=== PATIENT | male | born 1945 | race Caucasian/White ===

== ENCOUNTER 2017-03-23 11:01 | Emergency (ER) | payer OTHER ==
[~2017-03-23] VITALS: Ht 160 cm; Wt 67.6 kg
[~2017-03-23 11:01] MED LIST: ALPR0.252 PO; CARV6.25 PO; DOXA4TAB PO; ISOS20TA13 PO; LOSA25TA14 PO; MECL-305 PO; MECL-56 PO; SIMV20TA1 PO
[2017-03-23 11:45] VITALS: BP 160/81
--- NOTE | 2017-03-23 13:35 | NUR ---
PT PRESENTS TO ER FOR EVALUATION OF RIGHT EYE SWELLING. PT STATES HE WOKE UP THIS AM AND HIS RIGHT EYE WAS SWOLLEN AND IT WAS DIFFICULT TO OPEN. HX HTN. DENIES N/V/D; SKIN IS PINK/WARM/DRY; AAOX4 WITH EVEN AND STEADY GAIT; LUNGS CLEAR BL; HR EVEN AND REGULAR; PT DENIES ANY FEVER, CP, SOB, OR COUGH AT THIS TIME; PATIENT STATES PAIN OF 0/10 AT THIS TIME; VSS; PATIENT POSITIONED FOR COMFORT; HOB ELEVATED; BEDRAILS UP X2; BED DOWN. ER MD MADE AWARE OF PT STATUS.
[2017-03-23 15:18] LABS: BASOPHILS # (AUTO) 0.1 K/uL (0.00-0.22); BASOPHILS % (AUTO) 1.3 % (0.0-2.0); EOSINOPHILS # (AUTO) 0.2 K/uL (0-0.4); EOSINOPHILS % (AUTO) 3.6 % (0.0-4.0); HEMATOCRIT 42.9 % (36-52); HEMOGLOBIN 13.7 g/dL (12.0-18.0); MEAN CORPUSCULAR HEMOGLOBIN 27 pg (27-31); MEAN CORPUSCULAR HGB CONC 32 g/dL (33-37); MEAN CORPUSCULAR VOLUME 85 fL (80-94); MONOCYTES # (AUTO) 0.5 K/uL (0.8-1.0); MONOCYTES % (AUTO) 7.5 % (1.7-9.3); NEUTROPHILS # (AUTO) 5.1 K/uL (1.8-7.7); NEUTROPHILS % (AUTO) 73.6 % (42.2-75.2); PLATELET COUNT (AUTO) 171 K/uL (140-450); RED BLOOD CELL COUNT(AUTO) 5.03 MIL/uL (4.20-6.10); RED CELL DISTRIBUTION WIDTH 17.5 % (11.6-13.7); WHITE BLOOD COUNT (AUTO) 6.9 K/uL (4.8-10.8)
[2017-03-23 15:31] LABS: ANION GAP 11.7 (8-16); CALCIUM 9.2 mg/dL (8.5-10.1); CARBON DIOXIDE 29.2 mmol/L (21-32); CHLORIDE 108 mmol/L (98-107); GLUCOSE 99 mg/dL (74-106); POTASSIUM 4.9 mmol/L (3.5-5.1); SODIUM SERUM 144 mmol/L (136-145); UREA NITROGEN, BLOOD 28 mg/dL (7-18)
--- NOTE | 2017-03-23 16:20 | NUR ---
PT RESTING COMFORTABLY ON BED AT THIS TIME, NO C/O PAIN OR ANY ACUTE DISTRESS AT THIS TIME, ON MONITOR, WILL CONTINUE TO MONITOR
--- NOTE | 2017-03-23 19:22 | NUR ---
REPORT GIVEN TO REBECCA DIANE FOR CONTINUATION OF CARE
[2017-03-23] MEDS ORDERED: ASPIRIN 325 MG TAB PO ONE (19:25)
--- NOTE | 2017-03-23 19:30 | NUR ---
REPORT GIVEN TO REBECCA ONTIVEROS, PT WILL BE UNDER THE CARE OF DR ASHLEY
[2017-03-23] MEDS ORDERED: ENALAPRILAT 2.5 MG/2 ML VIAL IVP ONE (20:20)
[2017-03-23 20:35] VITALS: BP 197/105
--- NOTE | 2017-03-23 20:35 | NUR ---
PT TRASFERRED TO [facility] VIA [facility]. NO S/S OF DISTRESS GIVEN. ENALAPRIL GIVEN D/T INCREASED BP, NO S/S OF DISTRESS NOTED ON DC. [facility] CONTACTED TO NOTIFIED OF TIME OF TRASFER.
== END 2017-03-23 20:35 | disposition short-term general hospital (02) ==
LOC: MED 11:01
DX: H53.2 Diplopia (principal); E78.00 Pure hypercholesterolemia, unspecified; I25.2 Old myocardial infarction; Z86.73 Personal history of transient ischemic attack (TIA), and cerebral infarction without residual deficits; Z95.1 Presence of aortocoronary bypass graft
CPT/HCPCS: 36415; 70450; 80048; 85025; 93005; 96374; 99285; J3490

== ENCOUNTER 2018-05-12 23:35 | Inpatient (IN) | payer OTHER ==
[~2018-05-12] VITALS: Ht 157.5 cm; Wt 61.2 kg
[~2018-05-12 23:35] MED LIST changes: +ASPI81CT20 PO; +ATEN50TA8 PO; +LON2.5 PO; +MSCON15 PO; +SERT25TA PO
[2018-05-12 23:42] VITALS: BP 151/69
--- NOTE | 2018-05-12 23:48 | NUR ---
TO BED # 6 AMBULATORY WITH HIS WALKER.
--- NOTE | 2018-05-13 | NUR ---
PATIENT IS A 73 Y/O MALE WHO PRESENTS TO THE ED FOR SYNCOPE S/P FALL. PT STATES THAT HE WAS WALKING AT HOME AND FELL. PT STATES 10/10 ACHING FOOT, SHOULDER, KNEES PAIN THAT DOES NOT RADIATE. PT DENIES CP, SOB, REPORTS NAUSEA DENIES VOMITING/DIARRHEA. PT AAOX4, RR EVEN/UNLABORED, AMBULATED WITH WALKER. PT REPOSITIONED FOR COMFORT, BED IN LOWEST POSITION. ER MD DR. CORTEZ NOTIFIED. WILL CONTINUE TO MONITOR. Addendum: 05/13/18 at 0052 by MEDDCV PATIENT IS A 73 Y/O MALE WHO PRESENTS TO THE ED FOR SYNCOPE S/P FALL. PT STATES THAT HE WAS WALKING AT HOME AND FELL. PT STATES 10/10 ACHING R FOOT, SHOULDER AND KNEE PAIN THAT DOES NOT RADIATE. PT DENIES CP, SOB, REPORTS NAUSEA DENIES VOMITING/DIARRHEA. PT AAOX4, RR EVEN/UNLABORED, AMBULATED WITH WALKER. PT REPOSITIONED FOR COMFORT, BED IN LOWEST POSITION. ER MD DR. CORTEZ NOTIFIED. WILL CONTINUE TO MONITOR.
--- NOTE | 2018-05-13 00:04 | NUR ---
Dr. Rodgers evaluating patient at bedside.
--- NOTE | 2018-05-13 00:19 | NUR ---
X-Ray at bedside.
[2018-05-13] MEDS ORDERED: KEP500 PO (00:22)
[2018-05-13] MEDS ORDERED: OMEP20TC12 PO (00:22)
[2018-05-13 00:31] LABS: BASOPHILS # (AUTO) 0.1 K/uL (0.00-0.22); BASOPHILS % (AUTO) 0.5 % (0.0-2.0); EOSINOPHILS # (AUTO) 0.1 K/uL (0-0.4); HEMATOCRIT 40.1 % (36-52); HEMOGLOBIN 12.6 g/dL (12.0-18.0); LYMPHOCYTES # (AUTO) 0.8 K/uL (2.0-11.5); LYMPHOCYTES % (AUTO) 6.6 % (20.5-51.1); MEAN CORPUSCULAR HEMOGLOBIN 28 pg (27-31); MEAN CORPUSCULAR HGB CONC 32 g/dL (33-37); MEAN CORPUSCULAR VOLUME 88.1 fL (80-94); MONOCYTES # (AUTO) 0.7 K/uL (0.8-1.0); MONOCYTES % (AUTO) 5.6 % (1.7-9.3); NEUTROPHILS # (AUTO) 10.5 K/uL (1.8-7.7); PLATELET COUNT (AUTO) 198 K/uL (140-450); RED BLOOD CELL COUNT(AUTO) 4.55 MIL/uL (4.20-6.10); RED CELL DISTRIBUTION WIDTH 15.3 % (11.6-13.7); WHITE BLOOD COUNT (AUTO) 12.1 K/uL (4.8-10.8)
[2018-05-13 00:43] LABS: ANION GAP 13.2 (8-16); CARBON DIOXIDE 27.1 mmol/L (21-32); CHLORIDE 106 mmol/L (98-107); CREATININE 3.3 mg/dL (0.7-1.3); GLUCOSE 150 mg/dL (74-106); POTASSIUM 5.3 mmol/L (3.5-5.1); SODIUM SERUM 141 mmol/L (136-145); UREA NITROGEN, BLOOD 52 mg/dL (7-18)
[2018-05-13 00:44] LABS: NEUTROPHILS % (AUTO) 86.3 % (42.2-75.2)
--- NOTE | 2018-05-13 00:48 | NUR ---
PT RETURN FROM CT
[2018-05-13 00:49] LABS: ALBUMIN 3.5 g/dL (3.4-5.0); ASPARTATE AMINOTRANSFERASE 15 U/L (15-37); TOTAL BILIRUBIN 0.6 mg/dL (0.0-1.0)
--- NOTE | 2018-05-13 00:55 | NUR ---
PATIENT WANTING TO SIT IN CHAIR. PATIENT EDUCATED FOR SAFETY THAT PT SHOULD BE IN BED.
[2018-05-13 00:56] LABS: CHOL/HDL RATIO 2.6 (1-4.5)
--- NOTE | 2018-05-13 01:15 | NUR ---
PATIENT RESTING AT THIS TIME. NO SIGNS OF DISTRESS.
[2018-05-13] MEDS ORDERED: ONDANSETRON 4 MG/2 ML VIAL IVP ONE (01:25)
[2018-05-13 02:24] LABS: APPEARANCE,URINE CLEAR (CLEAR); BILIRUBIN,URINE NEGATIVE (NEGATIVE); BLOOD, URINE TRACE-I (NEGATIVE); COLOR,URINE YELLOW (YELLOW); LEUKOCYTE ESTERASE ,URINE NEGATIVE (NEGATIVE); NITRITE, URINE NEGATIVE (NEGATIVE); UGLUCOSE NEGATIVE (NEGATIVE)
[2018-05-13 02:40] LABS: RBC,URINE 0-5 (RARE) /HPF (0-5); WBC,URINE 0-5 (RARE) /HPF (0-5)
[2018-05-13 02:41] LABS: HYALINE CASTS, URINE 0-3 /LPF (None Seen)
[2018-05-13] MEDS ORDERED: ACETAMINOPHEN 325 MG TAB PO PRN (02:55)
[2018-05-13] MEDS ORDERED: DOCUSATE SODIUM 100 MG GELCAP PO PRN (02:55)
[2018-05-13] MEDS ORDERED: MORPHINE SULFATE 2 MG/ML SYR IVP PRN (02:55)
[2018-05-13] MEDS ORDERED: HYDROcodone/APAP 5/325 MG 1 TAB TAB PO PRN (02:55)
[2018-05-13] MEDS ORDERED: LORazepam 2 MG/ML VIAL IM/IVP PRN (02:55)
[2018-05-13] MEDS ORDERED: ONDANSETRON 4 MG/2 ML VIAL IM/IVP PRN (02:55)
--- NOTE | 2018-05-13 03:04 | NUR ---
BED DELAY, ON-CALL RN WILL BE CALLED IN. CHARGE NURSE, WESTON WILL CALL WHEN RN AVAILABLE TO TAKE PT.
[2018-05-13 03:36] LABS: BARBITURATE, URINE NEG. ng/ml (NEG <=200); BENZODIAZEPINE, URINE NEG. ng/mL (NEG <=200); CANNABINOID, URINE NEG. ng/mL (NEG <=50); COCAINE, URINE NEG. ng/mL (NEG <=300); OPIATE, URINE POS. ng/mL (NEG <=2000); PHENCYCLIDINE SCREEN,URINE NEG. ng/mL (NEG <=25)
[2018-05-13 03:43] LABS: CHOL/HDL RATIO 2.6 (1-4.5); PHOSPHORUS 4.5 mg/dL (2.5-4.9); THYROID STIMULATING HORMONE 3.79 uIU/mL (0.34-3.74)
--- NOTE | 2018-05-13 03:45 | NUR ---
Dr. Purdy evaluating patient at bedside.
--- NOTE | 2018-05-13 04:00 | NUR ---
ADMITTED 73YEARS OLD MALE FROM ER, CC: S/P FALL. DX: CHF, AFIB. SEE NURSING ADMISSION ASSESSMENT AND HISTORY. ORIENTED TO ROOM AND UNIT ROUTINES. CALL LIGHT WITHIN REACH. PLAN OF CARE DISCUSSED WITH PATIENT, VERBALIZED UNDERSTANDING WELL.
--- NOTE | 2018-05-13 04:00 | NUR ---
Patient will be admitted to care of DR. WALLER. Admited to TELE. Will go to room 123B. Belongings list completed. Report to JOHN FERNANDEZ.
[2018-05-13] MEDS ORDERED: MECLIZINE 25 MG TAB PO PRN (04:25)
[2018-05-13] MEDS ORDERED: ALPRAZolam 0.25 MG TAB PO PRN (04:35)
[2018-05-13] MEDS ORDERED: MORPHINE TAB ER 15 MG TABER PO PRN (04:35)
[2018-05-13 04:47] VITALS: BP 146/86
[2018-05-13] MEDS ORDERED: SODIUM POLYSTYRENE 15 GM/60 ML UDBTL PO SCH (05:00)
[2018-05-13] MEDS: NACL 0.9% 1,000 ML IV SCH ×2 (05:40→21:42)
--- NOTE | 2018-05-13 07:20 | NUR ---
ENDORSED CARE AT BEDSIDE WITH SITTAL RN, PATIENT IN STABLE CONDITION. PATIENT SON WILL COME AROUND 0730 TO HOUSE WIRER HELPER HOME MEDS AT BEDSIDE, ENDORSED TO SITTAL RN TO FOLLOW-UP MEDS HOU[facility] HELPER IF NOT, BRING TO INPATIENT PHARMACY.
--- NOTE | 2018-05-13 07:21 | NUR ---
RECEIVED PT FROM PM NURSE AT THE BEDSIDE. PT AWAKE, LYING DOWN ON BED. INTRODUCED SELF AND UPDATED THE BOARD. ALL SAFETY MEASURE IN PLACE. PT HOME MEDS IN THE CLOSET. PER PM NURSE SON TO VISIT PT BY [phone]. WILL GIVE MEDS TO PHARMACY IF THERE IS NO VISIT.WILL CONTINUE TO MONITOR PT.
[2018-05-13 08:00] VITALS: BP 174/74
--- NOTE | 2018-05-13 08:15 | NUR ---
PATIENT HAS BEEN SCREENED AND CATEGORIZED MODERATE NUTRITION RISK. PATIENT WILL BE SEEN WITHIN 3-5 DAYS OF ADMISSION. 05/15/18 05/17/[address]
[2018-05-13] MEDS: PANTOPRAZOLE 40 MG TABEC PO SCH (08:44)
[2018-05-13] MEDS: SERTRALINE 50 MG TAB PO SCH (08:45)
[2018-05-13] MEDS: ASPIRIN 81 MG TAB.CHEW PO SCH (08:45)
[2018-05-13] MEDS: levETIRAcetam 500 MG TAB PO SCH ×2 (08:45→21:40)
[2018-05-13] MEDS: MORPHINE TAB ER 15 MG TABER PO SCH ×2 (08:46→21:41)
[2018-05-13] MEDS ORDERED: LISINOPRIL 10 MG TAB PO SCH (09:00)
[2018-05-13] MEDS ORDERED: CARVEDILOL 6.25 MG TAB PO SCH (09:00)
[2018-05-13] MEDS ORDERED: ATENOLOL 50 MG TAB PO SCH (09:00)
[2018-05-13] MEDS ORDERED: hydrALAZINE 20 MG/ML VIAL IVP SCH (09:00)
--- NOTE | 2018-05-13 09:30 | NUR ---
ADMINISTERED HYDRALAZINE, 0.5 ML , 10 MG ORDERED BY DOCTOR. ATENOLOL ON HOLD BECAUSE OF HIS LOW HR. PT NOTIFIED. PT STATES THAT HIS BP HAS BEEN HIGH ALL THE TIME. PT TOLERATED MEDS WELL. DR SERRANO AT HIS BEDSIDE. EXPLAINED ABOUT HIS LOWERED HR AND CHANGED HIS CODE STATUS TO DNR. ALL SAFETY MEASURE IN PLACE. BED ON LOWERT POSITION. CALL LIGHT WITHIN REACH. WILL CONTINUE TO MONITOR PT.
--- NOTE | 2018-05-13 11:40 | NUR ---
PT CODE STATUS CHANGED TO DNR BY DR SERRANO..
[2018-05-13 12:00] VITALS: BP 152/54
--- NOTE | 2018-05-13 14:06 | NUR ---
PTS FAMILY AT THE BEDSIDE. SON BRISSA WITH PT. INFORMS THAT HIS SON WILL TAKE MEDS TO HOME , PT MEDS IN PHARMACY. INFORMED TO LET KNOW WHEN THEY WILL BE LEAVING, WILL BE PROVIDED THE MEDS THAT WAS FROM HOME. VERBALIZED UNDERSTANDING.
[2018-05-13 16:00] VITALS: BP 169/55
--- NOTE | 2018-05-13 16:00 | NUR ---
PT STATES THAT YELLOW GOWN GIVES HIM ANXIETY. WANTED TO BE OFF. PT ON HIS REGULAR UNDERSHIRT. CHARGE NURSE NOTIFIED. BED ALARM ON. BED AT LOWER POSITION. IV INFUSING WELL. WILL CONTINUE TO MONITOR PT.
--- NOTE | 2018-05-13 18:30 | NUR ---
DR CANCINO AT BEDSIDE. EXPLAINED PT THAT HE NEEDS PACEMAKER. PT CONCERNED ABOUT THE FINANCE , WAS INFORMED THAT INSURANCE WILL COVER THAT. PER DR CANCINO, PT TO PERFORM PACEMAKER INSERTION TOMORROW. PT AGREES AND VERBALIZED UNDERSTANDING. WILL CONTINUE TO MONITOR PT/
--- NOTE | 2018-05-13 19:20 | NUR ---
ENDORSED TO PM NURSE AT BEDSIDE. PT STABLE AT BEDSIDE.
--- NOTE | 2018-05-13 19:21 | NUR ---
RECEIVED REPORT FROM DAY SHIFT NURSE. AAOX4. NO RESP DISTRESS NOTED. NO C/O PAIN. PT ON ROOM AIR. IV TO LEFT AC #20, NS AT 30 ML/HR INFUSING WELL. SKIN INTACT. AT BEDSIDE. PT WILL BE TRANSFERRED TO ICU TONIGHT FOR EXTERNAL PACEMAKER TONIGHT AND INSERTION OF INTERNAL PACEMAKER TOMORROW MORNING. SAFETY PRECAUTION IN PLACE. CALL LIGHT WITHIN REACH.
[2018-05-13 20:00] VITALS: BP 153/66
--- NOTE | 2018-05-13 20:50 | NUR ---
PT TRANSFERRED TO ICU. REPORT GIVEN TO ICU NURSE. PT IN STABLE CONDITION.
--- NOTE | 2018-05-13 20:50 | NUR ---
TALKED TO DR. CANCINO Y REGARDING ORDER " EXTERNAL PACEMAKER STAND BY AT OP 10 MA RATE OF [address]" [address] CANCINO, IF PT DOES NOT HAVE SYMPTOMS, JUST STANDBY.
--- NOTE | 2018-05-13 21:00 | NUR ---
PT TRANSFER FROM TELEMETRY UNITS. PT IS ALERT ORIENTED, ABLE TO MAKE NEEDS KNOWN. ARABIC AND UNDERSTAND SIMPLE KHMER. PT ABLE TO WALK TO TRANSFER TO THE BED WITH ASSISTANCE. NO C/O PAIN AT THIS TIME, NO S/S OF SOB. PT ON ROOM AIR AT THIS TIME. PLACE PT ON COMFORTABLE POSITIONS. PER REPORT PT WILL HAVE PACEMAKER INSERTION IN AM WITH DR.PALIWAL MIRANDA. AT HIS TIME ORDER TO STAND BY EXTERNAL PACING [address] DEFIBRILLATOR PADS TO PTS AND STAND BY MACHINE AT BED SIDE. NO C/O FOR ANY CHEST PAIN AT THIS TIME. HR 38-44 X/MIN MD AWARE.SKIN IS INTACT, PT CONTINENT BOWEL AND BLADDER. ABD SOFT NON DISTENDED. GENTLE CARE GIVEN. CALL LIGHT IN REACH. CONT TO MONITOR PT CLOSELY.
[2018-05-13 21:11] VITALS: BP 172/96
[2018-05-13] MEDS: SIMVASTATIN 20 MG TAB PO SCH (21:41)
[2018-05-13] MEDS: hydrALAZINE 25 MG TAB PO SCH (21:41)
[2018-05-13] MEDS: ZOLPIDEM 5 MG TAB PO PRN (22:45)
--- NOTE | 2018-05-13 23:10 | NUR ---
DR.PALIWAL MIRANDA MADE AWARE PT BP INCREASE TO 193/95, PER MD TO GIVE AMLODIPINE 5 MG NOW AND DAILY START TOMORROW. ORDER NOTED AND CARRIED OUT PT MADE AWARE THE ORDER.
[2018-05-13] MEDS ORDERED: amLODIPine 5 MG TAB PO SCH (23:30)
[2018-05-14] VITALS (8 sets, daily range): BP systolic 125–193; BP diastolic 55–95
--- NOTE | 2018-05-14 00:05 | NUR ---
BLOOD PRESSURE DOWN TO 150/53,HR 35. NO C/O ANY WEAKNESS OR CHEST PAIN. PT LOOK CALM AND RELAX.HE SAID TRYING TO GET SOME SLEEP. NPO AT THIS TIME
--- NOTE | 2018-05-14 00:20 | NUR ---
PT URINATE X1 ABOUT 250 CC.PT ABLE TO STAND UP AND USING URINAL.
--- NOTE | 2018-05-14 02:25 | NUR ---
PT SLEEP WELL. HR 32 TO 40. PT SLEEP GOOD AT THIS TIME. EASY TO AWAKE.
--- NOTE | 2018-05-14 03:04 | NUR ---
PT URINATE X1 ABOUT 250 CC.PT ABLE TO STAND UP AND USING URINAL.
--- NOTE | 2018-05-14 05:00 | NUR ---
AM CARE GIVEN PT TOLERATING WELL, URINATE X1 ABOUT 300 CC ,YELLOW CLEAR URINE.
--- NOTE | 2018-05-14 06:05 | NUR ---
PT SLEEPING WELL AT THIS TIME
--- NOTE | 2018-05-14 06:08 | NUR ---
COME TOO SEE PT.
--- NOTE | 2018-05-14 06:49 | NUR ---
PLACED CALL TO ARABELLA FLANAGAN TO GET CONSENT FOR PACEMAKER PLACEMENT NO ANSWER LEFT MESSAGE TO CALL BACK.PT IS SLEEPING AT THIS TIME. WILL ENDORSE TO AM SHIFT TO FOLLOW UP.
[2018-05-14 07:09] LABS: BASOPHILS % (AUTO) 0.3 % (0.0-2.0); EOSINOPHILS % (AUTO) 0.6 % (0.0-4.0); HEMATOCRIT 38.5 % (36-52); HEMOGLOBIN 12.6 g/dL (12.0-18.0); LYMPHOCYTES % (AUTO) 14.3 % (20.5-51.1); MEAN CORPUSCULAR HEMOGLOBIN 28 pg (27-31); MEAN CORPUSCULAR HGB CONC 33 g/dL (33-37); MONOCYTES # (AUTO) 0.6 K/uL (0.8-1.0); MONOCYTES % (AUTO) 8.2 % (1.7-9.3); NEUTROPHILS # (AUTO) 5.6 K/uL (1.8-7.7); NEUTROPHILS % (AUTO) 76.6 % (42.2-75.2); PLATELET COUNT (AUTO) 176 K/uL (140-450); RED BLOOD CELL COUNT(AUTO) 4.43 MIL/uL (4.20-6.10); RED CELL DISTRIBUTION WIDTH 15.2 % (11.6-13.7); WHITE BLOOD COUNT (AUTO) 7.3 K/uL (4.8-10.8)
--- NOTE | 2018-05-14 07:20 | NUR ---
RECIEVED REPORT FROM NOC SHIFT. PT IN STABLE CONDITION. NO SIGNS OF ACUTE DISTRESS. ABLE TO VERBALIZE NEEDS. SINUS DELVIN ON MONITOR. IV SITE L AC PATENT. SIDE RAILS UP. CALL LIGHT WITHIN REACH. BED IN LOWEST POSITION. WILL CONTINUE TO MONITOR
[2018-05-14 07:26] LABS: ANION GAP 11.9 (8-16); CARBON DIOXIDE 26.4 mmol/L (21-32); CHLORIDE 102 mmol/L (98-107); CREATININE 2.7 mg/dL (0.7-1.3); GLUCOSE 107 mg/dL (74-106); POTASSIUM 4.3 mmol/L (3.5-5.1); SODIUM SERUM 136 mmol/L (136-145); UREA NITROGEN, BLOOD 42 mg/dL (7-18)
[2018-05-14 07:32] LABS: MAGNESIUM 1.8 mg/dL (1.8-2.4); PHOSPHORUS 3.4 mg/dL (2.5-4.9)
[2018-05-14] MEDS: MORPHINE TAB ER 15 MG TABER PO SCH ×2 (08:56→20:10)
[2018-05-14] MEDS: levETIRAcetam 500 MG TAB PO SCH ×2 (08:56→20:10)
[2018-05-14] MEDS: PANTOPRAZOLE 40 MG TABEC PO SCH (08:57)
[2018-05-14] MEDS: hydrALAZINE 25 MG TAB PO SCH ×2 (08:57→20:10)
[2018-05-14] MEDS: SERTRALINE 50 MG TAB PO SCH (08:58)
[2018-05-14] MEDS: ASPIRIN 81 MG TAB.CHEW PO SCH (08:58)
[2018-05-14] MEDS: amLODIPine 5 MG TAB PO SCH (08:58)
--- NOTE | 2018-05-14 09:21 | NUR ---
PT TRANSFERRED TO OR FOR PROCEDURE VIA BED. IN STABLE CONDITION. NO SIGNS OF ACUTE DISTRESS NOTED
[2018-05-14] MEDS ORDERED: fentaNYL 0.05 MG/ML VIAL ONE (09:43)
[2018-05-14] MEDS ORDERED: MIDAZOLAM 2 MG/2 ML VIAL ONE (09:43)
[2018-05-14] MEDS ORDERED: ceFAZolin 1,000 MG VIAL ONE (10:01)
[2018-05-14] MEDS ORDERED: BUPIVACAINE-MPF 0.5% 30 ML VIAL INJ ONE (10:01)
[2018-05-14] MEDS ORDERED: BUPIVACAINE-MPF/EPI 0.5% 30 ML VIAL INJ ONE (10:02)
--- NOTE | 2018-05-14 11:36 | NUR ---
PT RETURNED TO UNIT FROM OR. PT IN STABLE CONDITION. NO SIGNS OF ACUTE DISTRESS NOTED
--- NOTE | 2018-05-14 11:45 | NUR ---
CXR AT BEDSIDE AT THIS TIME.
--- NOTE | 2018-05-14 14:58 | NUR ---
APPLIED ARM SLING TO PT LEFT ARM, PT TOOK IT OFF BY HIMSELF, EXPLAINED TO PT THE BENEFITS AND RISKS, PT STATED " THIS DOES NOT BELONG TO ME, i DO NOT FEEL COMFORTABLE, THIS ONE BELONGS TO PEOPLE WHO HAVE BROKEN ARMS". CHARGE NURSE AWARE.
[2018-05-14] MEDS ORDERED: PROBIOTIC SCREEN 1 EA MISC MC PRN (15:45)
--- NOTE | 2018-05-14 20:00 | NUR ---
PT AWAKE, ALERT. NO S/S OF RESPIRATORY DISTRESS NOTED. ASSISTED PT TO SIT AT BEDSIDE, PT STATED HE DOES NOT FEEL GOOD HE CAN NOT DO ANYTHING HERE, JUST STAYED IN BED. HE CAN DO ANYTHING AT HOME EVEN IN THE WHEELCHAIR. COMFORTED PT. OFFERED PT WATER, PT DRINK 150 CC.
[2018-05-14] MEDS: SIMVASTATIN 20 MG TAB PO SCH (20:10)
[2018-05-14] MEDS: ZOLPIDEM 5 MG TAB PO PRN (22:37)
--- NOTE | 2018-05-14 22:57 | NUR ---
PT STAYING IN BED WATCHING TV AT THIS MOMENT, ENDORSED CARE TO ABEBE. NO S/S OF RESPIRATORY DISTRESS NOTED AT THIS MOMENT.
--- NOTE | 2018-05-14 23:19 | NUR ---
RECEIVED PT SLEEPING,TV ONGOING, IVF ONGOING VIA PERIPHERAL LINE,DRESSING ON LEFT SUBCLAVIAN INTACT FROM PERMANENT PACEMAKER,NO BLEEDING NOTED, CALL LIGHT WITHIN EASY REACH,WILL CHECK PT FREQUENTLY.
[2018-05-15 00:25] VITALS: BP 147/71
--- NOTE | 2018-05-15 00:28 | NUR ---
PT SLEEPING AT THIS TIME, NO UNUSUAL OBSERVATION NOTED
--- NOTE | 2018-05-15 01:54 | NUR ---
PT SLEEPING, HR 60 PACED RHYTHM, NO DISTRESS NOTED.
--- NOTE | 2018-05-15 02:33 | NUR ---
ENDORSED TO DELVIN
--- NOTE | 2018-05-15 03:00 | NUR ---
UP AND ABOUT TO HIS WHEELCHAIR; MORNING BED BATH DONE WITH MINIMAL ASSISTANCE.
--- NOTE | 2018-05-15 03:45 | NUR ---
REFUSED TO PUT ON HIS SLING.
[2018-05-15 06:00] VITALS: BP 145/72
[2018-05-15 07:00] LABS: HEMATOCRIT 39.3 % (36-52); HEMOGLOBIN 12.5 g/dL (12.0-18.0); MEAN CORPUSCULAR HEMOGLOBIN 28 pg (27-31); MEAN CORPUSCULAR HGB CONC 32 g/dL (33-37); MEAN CORPUSCULAR VOLUME 87.5 fL (80-94); PLATELET COUNT (AUTO) 180 K/uL (140-450); RED BLOOD CELL COUNT(AUTO) 4.49 MIL/uL (4.20-6.10); RED CELL DISTRIBUTION WIDTH 15.2 % (11.6-13.7); WHITE BLOOD COUNT (AUTO) 9.5 K/uL (4.8-10.8)
[2018-05-15 07:09] LABS: ANION GAP 13.9 (8-16); CARBON DIOXIDE 25.2 mmol/L (21-32); CHLORIDE 101 mmol/L (98-107); CREATININE 2.5 mg/dL (0.7-1.3); GLUCOSE 122 mg/dL (74-106); POTASSIUM 4.1 mmol/L (3.5-5.1); SODIUM SERUM 136 mmol/L (136-145); UREA NITROGEN, BLOOD 38 mg/dL (7-18)
--- NOTE | 2018-05-15 07:15 | NUR ---
ENDORSED TO AM SHIFT REBECCA KIRBY FOR CONTINUITY OF CARE.
--- NOTE | 2018-05-15 07:30 | NUR ---
RECEIVED REPORT FROM INVESTIGATIVE SHOPPER RN. PT IS ASLEEP, BUT EASILY AROUSABLE TO NAME. ALERT AND ORIENTED X 4, ABLE TO MAKE NEEDS KNOWN. PACED RHYTHM ON MONITOR. S/P PACEMAKER PLACEMENT ON 05/14/18. PLACEMAKER CHECKED BY JOSUÉ RN FROM [facility]. NO PROBLEM NOTED ON PACEMAKER, PER MO. NO C/O PAIN OR DISCOMFORT AT THIS TIME. PT IS ON ROOM AIR, O2 SAT 93%. NO SIGNS OF SOB NOTED. ABDOMEN SOFT, NONDISTENDED AND NONTENDER W/ ACTIVE BOWEL SOUNDS. PERIPHERAL IV G20 TO LEFT ANTECUBITAL PATENT AND INTACT, RUNNING NORMAL SALINE AT 30 ML/HR. SKIN IS INTACT, PT IS CONTINENT OF BOWEL AND BLADDER. AFEBRILE. BED IN LOWEST POSITION AND CALL LIGHT WITHIN REACH. WILL CONTINUE TO MONITOR.
--- NOTE | 2018-05-15 07:50 | NUR ---
PROVIDED BREAKFAST, BUT PT STATED HE WANTS TO SLEEP MORE.
[2018-05-15 07:51] LABS: BASOPHILS % (MANUAL) 0 % (0-2); EOSINOPHILS % (MANUAL) 1 % (0-4); LYMPHOCYTES % (MANUAL) 6 % (20-46); MONOCYTES % (MANUAL) 10 % (5-12)
[2018-05-15 08:00] VITALS: BP 164/69
--- NOTE | 2018-05-15 08:12 | NUR ---
DR. WALLER AND RESIDENT GROUP IN TO SEE PT. WILL FOLLOW UP ON ORDERS.
[2018-05-15] MEDS: PANTOPRAZOLE 40 MG TABEC PO SCH (08:23)
[2018-05-15] MEDS: MORPHINE TAB ER 15 MG TABER PO SCH ×2 (08:23→22:01)
[2018-05-15] MEDS: hydrALAZINE 25 MG TAB PO SCH ×2 (08:24→22:00)
[2018-05-15] MEDS: amLODIPine 5 MG TAB PO SCH (08:24)
[2018-05-15] MEDS: SERTRALINE 50 MG TAB PO SCH (08:24)
[2018-05-15] MEDS: ASPIRIN 81 MG TAB.CHEW PO SCH (08:24)
[2018-05-15] MEDS: NACL 0.9% 1,000 ML IV SCH (08:25)
[2018-05-15] MEDS: levETIRAcetam 500 MG TAB PO SCH ×2 (08:25→22:00)
--- NOTE | 2018-05-15 08:32 | NUR ---
MEDICATIONS ADMINISTERED ORDERED. PT TOLERATED WELL.
[2018-05-15 10:57] LABS: MAGNESIUM 1.7 mg/dL (1.8-2.4); PHOSPHORUS 3.3 mg/dL (2.5-4.9)
--- NOTE | 2018-05-15 10:59 | NUR ---
PT IS ASLEEP. NO CHANGE OF CONDITION AT THIS TIME. VITAL SIGNS STABLE. WILL CONTINUE TO MONITOR.
[2018-05-15 12:00] VITALS: BP 139/73
--- NOTE | 2018-05-15 12:10 | NUR ---
PT IS HAVING LUNCH. SISTERS AT BEDSIDE. NEEDS WELL ATTENDED. NO SIGNS OF ACUTE DISTRESS AT THIS TIME.
--- NOTE | 2018-05-15 12:47 | NUR ---
PT SEEN BY DR. BARAK Elizalde WILL FOLLOW UP ON ORDERS.
--- NOTE | 2018-05-15 15:12 | NUR ---
PT IS ASLEEP. VITAL SIGNS STABLE. SAFETY PRECAUTIONS IN PLACE. WILL CONTINUE TO MONITOR.
[2018-05-15 16:00] VITALS: BP 121/66
--- NOTE | 2018-05-15 17:40 | NUR ---
PT IS HAVING DINNER. VITAL SIGNS STABLE. NEEDS WELL ATTENDED. NO DISTRESS OR DISCOMFORT NOTED AT THIS TIME. WILL CONTINUE TO MONITOR.
--- NOTE | 2018-05-15 19:00 | NUR ---
PT TRANSFERRED TO TELEMETRY ROOM 112A. REPORT GIVEN TO REBECCA BARTON AT BEDSIDE. PT IS IN STABLE CONDITION.
--- NOTE | 2018-05-15 19:00 | NUR ---
RECEIVED PT VIA WHEELCHAIR, AND REPORT GIVEN BY ICU NURSE, MIRTA, PT IS AWAKE, ALERT, ORIENTED. VITAL SIGNS TAKEN AND IS STABLE. PT HAS AN IV LINE ON THE LEFT AC G. 2O, SALINE LOCK, AND A PACEMAKER PLACED ON THE LEFT UPPER BODY. FALL PRECAUTION ENFORCED AND BED ALARM WAS ACTIVATED. NO SIGN OF DISTRESS NOTED ON THE PT.
--- NOTE | 2018-05-15 19:30 | NUR ---
ENDORSED PT TO CHIEF MARKETING OFFICER NURSEWESTON FOR CONTINUITY OF CARE, PT IS STABLE AT THIS TIME.
--- NOTE | 2018-05-15 19:30 | NUR ---
REPORT RECEIVED FROM ORALIA FERNANDEZ DAYSHIFT NURSE. PT IS AOX4. HE IS SITTING UP IN BED WITH HIS GLASSES ON AND SKIN INTACT EXCEPT FOR LAC WITH N/S RUNNING AT 30MLS /HR. PT HAS NO C/ OF PAIN OR DISTRESS HE IS POST OP PACEMAKER 05/12/18. PT ONLY REQUEST IS SLEEPING PILL.
[2018-05-15 20:00] VITALS: BP 134/65
--- NOTE | 2018-05-15 21:00 | NUR ---
PT HAS RECEIVED PRN AMBIEN AND IS RESTING QUIETLY, BUT AROUSABLE TO NAME. IV SITE ASYMPTOMATIC AND RUNNING N/S AT 30ML/HR ORDERED. NO S/S OF PAIN OR DISTRESS PT ASKED FOR TV REMOTE AND WAS ORIENTED TO REMOTE. BED IN LOW POSITION AND BED ALARM ON. PT USED URINAL X2 AND REQUESTED WATER. PT IS ASKING ABOUT GOING HOME TO FAMILY. PRIMARY NURSE SAID SHE WOULD CHECK ON DISCHARGE ORDER.
[2018-05-15] MEDS: SIMVASTATIN 20 MG TAB PO SCH (22:01)
[2018-05-15] MEDS: ZOLPIDEM 5 MG TAB PO PRN (22:01)
--- NOTE | 2018-05-15 23:00 | NUR ---
PT SLEEPING SOUNDLY IN LOW BED WITH CALL GUZMAN, URINAL AND TRAY TABLE IN PLACE. ALL NEEDS ATTENDED BY STAFF.
[2018-05-16] VITALS: BP 141/67
--- NOTE | 2018-05-16 01:00 | NUR ---
PT SLEEPING QUIETLY SLEEPING IN BED NO S/S OF PAIN OR DISTRESS NOTED.
[2018-05-16] MEDS: NACL 0.9% 1,000 ML IV SCH (02:52)
--- NOTE | 2018-05-16 03:00 | NUR ---
PT SLEEPING SOUNDLY NO S/S OF PAIN OR DISTRESS BED LOW SIDE RAILS UP X2 AND CALL GUZMAN IN REACH. IV SITE PATENT AND RUNNING 30ML/HR ORDERED.
--- NOTE | 2018-05-16 04:30 | NUR ---
V/S AT 0400: T 98.5 P 60 R 20 B/P 136/68 O2 92 ON R/A. NO S/S OF PAIN OR DISTRESS. PT WENT BACK TO SLEEP AFTER V/S DONE.
--- NOTE | 2018-05-16 05:42 | NUR ---
PT IN BED LAB AT BEDSIDE PT HAS NO C/O VOICED AT THIS TIME.
[2018-05-16 06:00] VITALS: BP 136/68
--- NOTE | 2018-05-16 07:20 | NUR ---
GAVE REPORT AT BEDSIDE FOR TRANSFER OF CARE TO OCTAVIANO LEONARDO. PT IN STABLE CONDITION.
--- NOTE | 2018-05-16 07:24 | NUR ---
ASSUMED CONTINUITY OF CARE. NO SIGNS AND SYMPTOMS OF ACUTE DISTRESS NOTED. INITIAL ASSESSMENT DONE. MILD EDEMA BLE, NOTED. RE-ORIENTED TO EVENTS AND SURROUNDINGS. EXPLAINED DIAGNOSIS, PLAN OF CARE, PAIN MANAGEMENT TEACHING, USE OF CALL LIGHT/BED/TV/BATHROOM. VERBALIZED UNDERSTANDING. FALL PRECAUTION APPLIED. CALL LIGHT WITHIN REACH.
--- NOTE | 2018-05-16 07:32 | NUR ---
Patient's Plan of Care was discussed and reviewed with APPLIANCE SERVICER: OCTAVIANO Bains
[2018-05-16 08:00] VITALS: BP 124/65
[2018-05-16 08:24] LABS: MAGNESIUM 1.7 mg/dL (1.8-2.4); PHOSPHORUS 2.6 mg/dL (2.5-4.9)
[2018-05-16 08:27] LABS: ANION GAP 12.5 (8-16); CARBON DIOXIDE 24.8 mmol/L (21-32); CHLORIDE 103 mmol/L (98-107); CREATININE 2.5 mg/dL (0.7-1.3); GLUCOSE 94 mg/dL (74-106); POTASSIUM 4.3 mmol/L (3.5-5.1); SODIUM SERUM 136 mmol/L (136-145); UREA NITROGEN, BLOOD 35 mg/dL (7-18)
[2018-05-16 08:28] LABS: BASOPHILS % (AUTO) 0.3 % (0.0-2.0); EOSINOPHILS # (AUTO) 0.2 K/uL (0-0.4); EOSINOPHILS % (AUTO) 2.4 % (0.0-4.0); HEMATOCRIT 37.1 % (36-52); LYMPHOCYTES # (AUTO) 1.2 K/uL (2.0-11.5); LYMPHOCYTES % (AUTO) 16.1 % (20.5-51.1); MEAN CORPUSCULAR HEMOGLOBIN 28 pg (27-31); MEAN CORPUSCULAR HGB CONC 32 g/dL (33-37); MEAN CORPUSCULAR VOLUME 87.1 fL (80-94); MONOCYTES % (AUTO) 13.8 % (1.7-9.3); NEUTROPHILS # (AUTO) 5.1 K/uL (1.8-7.7); NEUTROPHILS % (AUTO) 67.4 % (42.2-75.2); PLATELET COUNT (AUTO) 172 K/uL (140-450); RED BLOOD CELL COUNT(AUTO) 4.26 MIL/uL (4.20-6.10); RED CELL DISTRIBUTION WIDTH 15.2 % (11.6-13.7); WHITE BLOOD COUNT (AUTO) 7.6 K/uL (4.8-10.8)
[2018-05-16] MEDS: hydrALAZINE 25 MG TAB PO SCH (08:56)
[2018-05-16] MEDS: SERTRALINE 50 MG TAB PO SCH (08:56)
[2018-05-16] MEDS: ASPIRIN 81 MG TAB.CHEW PO SCH (08:57)
[2018-05-16] MEDS: amLODIPine 5 MG TAB PO SCH (08:57)
[2018-05-16] MEDS: PANTOPRAZOLE 40 MG TABEC PO SCH (08:57)
[2018-05-16] MEDS: MORPHINE TAB ER 15 MG TABER PO SCH (08:58)
[2018-05-16] MEDS: levETIRAcetam 500 MG TAB PO SCH (08:58)
--- NOTE | 2018-05-16 09:00 | NUR ---
DR. WALLER, RESIDENTS MD, AND CHARGE NURSE CAME FOR AM PT. ROUNDS.
--- NOTE | 2018-05-16 10:35 | NUR ---
INFORMED DR. LIU REGARDING PT. MAG 1.7.
--- NOTE | 2018-05-16 11:24 | NUR ---
DR. LIU CAME SPOKE TO PT. AT BEDSIDE AND EXPLAINED TO PT. REGARDING D/C HOME. INFORMED ONCE AGAIN TO DR. LIU ABOUT MAG 1.7. INFORMED CHARGE NURSE ABOUT PT. MAG 1.7.
[2018-05-16 12:00] VITALS: BP 144/71
--- NOTE | 2018-05-16 13:04 | NUR ---
DR. CARDENAS, FELIPE VILLAGOMEZ, REVIEWED PT. CHART.
[2018-05-16] MEDS ORDERED: MAGNESIUM OXIDE 400 MG TAB PO SCH (14:30)
[2018-05-16] MEDS ORDERED: AMLO5TAB PO (15:04)
[2018-05-16] MEDS ORDERED: HYDR-1098 PO (15:07)
--- NOTE | 2018-05-16 15:26 | NUR ---
ASSISTED TO BATHROOM. TOLERATED WELL. NO SOB, NOTED. KEEP FREE FROM FALL.
--- NOTE | 2018-05-16 15:33 | NUR ---
SPOKE TO ROHITH FLANAGAN REGARDING HOME HEALTH AGENCY AND HE HAS NO PREFERENCE. WILL CONTACT [facility] AND VERIFIED ADDRESS FROM ROHITH [address] [place], [address] Addendum: 05/16/18 at 1542 by Sarah West CM [facility], THE CONTACT FOR HOME HEALTH AGENCY WILL BE TIMI FRANK
[2018-05-16 16:00] VITALS: BP 145/66
--- NOTE | 2018-05-16 16:16 | NUR ---
PHYSICAL THERAPY CO-SIGN The Physical Therapy Progress Notes documented by Spooling Supervisor have been reviewed. Reviewed/Co-Signed by: Laine Bear PT Documentation Done by: Ayo Ye PTA Patient making steady gains with good increased distance. patient education on cardiac prec with good return demonstration Addendum: 05/16/18 at 1617 by Laine Bear PT Amended: Links added.
--- NOTE | 2018-05-16 16:30 | NUR ---
DR. LIU MADE AWARE THAT PT. ROHITH TuttleMASHA WILL BE AVAILABLE TO PHYTOPATHOLOGY TEACHER PT. FOR D/C AFTER 0. ALSO INFORMED CHARGE NURSE XENA LOAMX.
--- NOTE | 2018-05-16 16:52 | NUR ---
Recreation Superintendent Note: I faxed referral to [facility], phone number . Per Brant from [facility] , they will send a nurse to patient's home tomorrow.
--- NOTE | 2018-05-16 17:43 | NUR ---
CALLED PT. ROHITH SAL MASHA AT REGARDING PT. D/C HOME. PER PT. ROHITH MOHR HE'S JUST WAITING FOR [employer] FOR TRANSPORT TO CONVERTER SUPERVISOR PT.. INFORMED CHARGE NURSE XENA LOMAX.
--- NOTE | 2018-05-16 19:20 | NUR ---
D/C HOME VIA WHEELCHAIR ACCOMPANIED BY PT. ORHITH MOHR. AWAKE, ALERT, AND ORIENTED X3. SPEECH CLEAR. NO C/O PAIN. NO SOB, NOTED. IN STABLE CONDITION. INFORMED CHARGE NURSE XENA LOMAX.
== END 2018-05-16 19:20 | disposition home health service (06) | DRG 242 ==
LOC: MED 23:35 → MTU 05-13 02:59 → MIC 05-13 20:50 → MTU 05-15 18:45
PROVIDERS: ADMIT General Practice; ATTEND General Practice
PROC: 02HK3JZ Insertion of Pacemaker Lead into Right Ventricle, Percutaneous Approach (ICD-10-PCS; 2018-05-14)
PROC: 0JH604Z Insertion of Pacemaker, Single Chamber into Chest Subcutaneous Tissue and Fascia, Open Approach (ICD-10-PCS; principal; 2018-05-14 09:30)
DX: I49.5 Sick sinus syndrome (principal); I50.43 Acute on chronic combined systolic (congestive) and diastolic (congestive) heart failure; N17.0 Acute kidney failure with tubular necrosis; I13.0 Hypertensive heart and chronic kidney disease with heart failure and stage 1 through stage 4 chronic kidney disease, or unspecified chronic kidney disease; N18.4 Chronic kidney disease, stage 4 (severe); D68.59 Other primary thrombophilia; E87.5 Hyperkalemia; I48.91 Unspecified atrial fibrillation; G40.909 Epilepsy, unspecified, not intractable, without status epilepticus; I42.9 Cardiomyopathy, unspecified; E86.0 Dehydration; G90.9 Disorder of the autonomic nervous system, unspecified; F41.9 Anxiety disorder, unspecified; I25.10 Atherosclerotic heart disease of native coronary artery without angina pectoris; E78.5 Hyperlipidemia, unspecified; N40.0 Benign prostatic hyperplasia without lower urinary tract symptoms; F32.9 Major depressive disorder, single episode, unspecified; W18.39XA Other fall on same level, initial encounter; G89.29 Other chronic pain; I16.0 Hypertensive urgency; M17.11 Unilateral primary osteoarthritis, right knee; E02 Subclinical iodine-deficiency hypothyroidism; Z86.73 Personal history of transient ischemic attack (TIA), and cerebral infarction without residual deficits; Z95.1 Presence of aortocoronary bypass graft; Y93.89 Activity, other specified; Y99.8 Other external cause status; Z90.49 Acquired absence of other specified parts of digestive tract; Y92.009 Unspecified place in unspecified non-institutional (private) residence as the place of occurrence of the external cause
CPT/HCPCS: 36415; 70450; 71045; 73562; 80048; 80053; 80305; 81001; 82550; 82553; 82948; 83036; 83690; 83735; 83880; 84100; 84134; 84443; 84484; 85025; 85379; 85610; 85730; 87081; 93005; 93880; 96374; 97110; 97116; 97140; 97530; 97535; 99291; C1786; J0360; J0690; J2250; J2270; J2405; J3010; J3490; J7030; Q0092

== ENCOUNTER 2018-10-03 15:57 | Outpatient (CLI) | payer OTHER ==
[~2018-10-03 15:57] MED LIST changes: +AMLO5TAB PO; -ATEN50TA8 PO; -CARV6.25 PO; -DOXA4TAB PO; +HYDR-1098 PO; -ISOS20TA13 PO; +KEP500 PO; -LON2.5 PO; -LOSA25TA14 PO; -MECL-305 PO; +OMEP20TC12 PO
== END 2018-10-03 20:33 | disposition home or self-care (01) ==
LOC: MUS 15:57
PROVIDERS: ATTEND Internal Medicine Geriatric Medicine
DX: M79.89 Other specified soft tissue disorders (principal); I10 Essential (primary) hypertension
CPT/HCPCS: 93970

== ENCOUNTER 2020-11-13 15:49 | Emergency (ER) | payer OTHER, MEDICAID ==
[~2020-11-13] VITALS: Ht 160 cm; Wt 71.0 kg
[~2020-11-13 15:49] MED LIST changes: +CEPH500C16 PO; -MSCON15 PO
[2020-11-13 17:05] VITALS: BP 154/132
--- NOTE | 2020-11-13 17:10 | NUR ---
C/O TESTICULAR & MASSIEL LOWER LEGS PAIN , SWELLING X 3 DAYS.
--- NOTE | 2020-11-13 17:11 | NUR ---
UMBERTO. HANDED ON URINE CUP.
--- NOTE | 2020-11-13 18:33 | NUR ---
Patient discharged with v/s stable. Written and verbal after care instructions given and explained. Patient alert, oriented and verbalized understanding of instructions. Ambulatory with steady gait. All questions addressed prior to discharge. ID band removed. Patient advised to follow up with PMD. Rx of LASIX given. Patient educated on indication of medication including possible reaction and side effects. Opportunity to ask questions provided and answered.
[2020-11-13 18:34] VITALS: BP 154/132
== END 2020-11-13 18:33 | disposition home or self-care (01) ==
LOC: MED 15:49
DX: R60.1 Generalized edema (principal); K21.9 Gastro-esophageal reflux disease without esophagitis; I10 Essential (primary) hypertension; E78.5 Hyperlipidemia, unspecified; Z79.899 Other long term (current) drug therapy
CPT/HCPCS: 99283